=== PATIENT | female | born 1990 | race Caucasian/White ===

== ENCOUNTER 2018-08-23 14:20 | Emergency (ER) | payer MEDICAID ==
[~2018-08-23] VITALS: Ht 175.3 cm; Wt 63.5 kg
[2018-08-23] MEDS ORDERED: LORAZEPAM 0.5 MG TABLET ONE (14:37)
[2018-08-23] MEDS ORDERED: LEVETIRACETAM (250 MG) 250 MG TABLET PO ONE ×2 (14:38→15:00)
--- NOTE | 2018-08-23 14:40 | NUR ---
BIB [facility] [address] AND [employer] OFFICERS,CLAIMED TO HAVE HAD A SEIZURE IN A HOLDING CELL. PT APPEARS DISHEVELED, UPSET. STATES SHE WAS AT [place] LAST NIGHT FOR SAME ISSUE. SHE IS AOX4, HAS STABLE VITALS, WITH RR EVEN AND UNLABORED ON RA. EVAL BY DR DACOSTA. AWAITING MD ORDERS.
[2018-08-23 14:56] LABS: BASOPHILS % (AUTO) 0.8 % (0.0-2.0); EOSINOPHILS % (AUTO) 0.4 % (0.0-6.0); HEMATOCRIT 36 % (33-45); LYMPHOCYTES % (AUTO) 15.8 % (20.0-44.0); MEAN CORPUSCULAR HGB CONC 33 g/dl (31.0-36.0); MEAN CORPUSCULAR VOLUME 83 fL (82-100); MONOCYTES # (AUTO) 0.5 /CMM (0.1-1.30); MONOCYTES % (AUTO) 8.7 % (2.0-12.0); NEUTROPHILS # (AUTO) 4.7 /CMM (1.8-8.9); NEUTROPHILS % (AUTO) 74.3 % (43.0-81.0); PLATELET COUNT (AUTO) 284 /CMM (150-450); RED BLOOD CELL COUNT(AUTO) 4.35 MIL/uL (4.0-5.2); WHITE BLOOD COUNT (AUTO) 6.3 K/uL (4.3-11.0)
[2018-08-23 14:57] LABS: APPEARANCE,URINE Clear (CLEAR); BILIRUBIN,URINE SMALL (NEGATIVE); BLOOD, URINE Negative Ery/uL (NEGATIVE); COLOR,URINE Yellow (YELLOW); KETONES,URINE Negative (NEGATIVE); LEUKOCYTE ESTERASE ,URINE Trace (NEGATIVE); NITRITE, URINE Negative (NEGATIVE); PROTEIN,URINE 30 mg/dl (NEGATIVE); UGLUCOSE Negative (NEGATIVE); UROBILINOGEN,URINE 0.2 EU/dL (0.2)
--- NOTE | 2018-08-23 14:57 | NUR ---
URINE AND BLOOD COLLECTED AND SENT TO STAT LAB
[2018-08-23] MEDS ORDERED: LORAZEPAM 1 MG TABLET PO ONE (15:00)
[2018-08-23 15:03] LABS: CALCIUM, SERUM 9.1 mg/dL (8.5-10.1); CARBON DIOXIDE 31 mmol/L (21-32); CHLORIDE 106 mmol/L (98-107); GLUCOSE 127 mg/dL (74-106); POTASSIUM 3.6 mmol/L (3.5-5.1); RBC,URINE 0-2 /HPF (0-2); SODIUM SERUM 142 mmol/L (136-145); UREA NITROGEN, BLOOD 17 mg/dL (7-18)
[2018-08-23 15:04] LABS: BACTERIA,URINE Many /HPF (None Seen); SQUAMOUS EPITHELIAL CELL,UR Few /HPF (None Seen)
[2018-08-23 15:16] LABS: ALANINE AMINOTRANSFERASE 103 U/L (12-78); ALBUMIN 3.4 g/dL (3.4-5.0); ALCOHOL, BLOOD < 3 mg/dL (0-0); ALKALINE PHOSPHATASE 91 U/L (46-116); ASPARTATE AMINOTRANSFERASE 73 U/L (15-37); BILIRUBIN,DIRECT 0.2 mg/dL (0.0-0.2); BILIRUBIN,TOTAL 0.7 mg/dL (0.2-1.0); SALICYLATE 0.5 mg/dL (2.8-20.0); TOTAL PROTEIN, SERUM 7.9 g/dL (6.4-8.2)
[2018-08-23 15:17] LABS: ACETAMINOPHEN 0 ug/ml (10-30)
--- NOTE | 2018-08-23 15:35 | NUR ---
PER MD, POWER MACHINE OPERATOR READY TO BE CONTACTED
--- NOTE | 2018-08-23 15:58 | NUR ---
FLESHING MACHINE OPERATOR PINKY AT BEDSIDE FOR EVAL.
--- NOTE | 2018-08-23 16:48 | NUR ---
Faustino quintero in [facility] - 08/23/18 at 1725 by REGINA SITTER AT BEDSIDE ASSISTING PT TO WALK
--- NOTE | 2018-08-23 16:48 | NUR ---
SITTER AT BEDSIDE, PT NO LONGER IN [place] BY [employer]
--- NOTE | 2018-08-23 17:30 | NUR ---
PER [employer] CUTTER CAMMY, PT WILL BE ADMITTED VOLUNTARILY TO [facility]. INFORMATION WAS FAXED TO [facility]. AWAITING CALL BACK FOR ACCEPTANCE Addendum: 08/23/18 at 2222 by REGINA "INFO WILL BE FAXED PENDING REVIEW" PER CAMMY'S NOTES
--- NOTE | 2018-08-23 17:49 | NUR ---
PT ASLEEP IN BED, AROUSES EASILY. NO COMPLAINTS AT THIS TIME. WILL CONT TO OBSERVE
--- NOTE | 2018-08-23 20:14 | NUR ---
PT STILL SLEEPING. SITBYERS AT BEDSIDE. VSS. WILL CONT TO MONITOR.
--- NOTE | 2018-08-23 22:52 | NUR ---
PROVIDED PT WITH SANDWICH AND JUICE
--- NOTE | 2018-08-24 01:13 | NUR ---
PT RESTING COMFORTABLY IN BED. VITAL SIGNS STABLE. NO ACUTE DISTRESS NOTED AT THIS TIME. SITTER AT BEDSIDE, WILL CONTINUE TO MONITOR
--- NOTE | 2018-08-24 01:50 | NUR ---
[facility] WILL ACCEPT THE PATIENT. ACCEPTING IS DR. JESSA MCDANIEL. ZACH TO P-6. PHONE NUMBER FOR REPORT IS .
--- NOTE | 2018-08-24 01:58 | NUR ---
CALLED [facility] FOR TRANSPORT. ETA 45 MINUTES. TRIP NUMBER [id number].
--- NOTE | 2018-08-24 03:10 | NUR ---
ATTEMPTED TO GIVE REPORT TO [facility]. PER MARGARITA FUNG, NO FEMALE BEDS AVAILABLE AT THIS TIME. WILL FOLLOW UP.
--- NOTE | 2018-08-24 03:15 | NUR ---
CALL FROM [facility]TA[facility]. NO LONGER ACCEPTING PATIENT DUE TO CAPACITY.
--- NOTE | 2018-08-24 03:38 | NUR ---
Note ingrid in ED - 08/24/18 at 0338 by GRIFFIN ATTEMPTED TO GIVE REPORT TO [facility]. PER MARGARITA FUNG, NO FEMALE BEDS AVAILABLE AT THIS TIME. WILL FOLLOW UP.
--- NOTE | 2018-08-24 09:20 | NUR ---
CALLED [facility], REFAXED ALL INFORMATION AND CLINICAL
[2018-08-24] MEDS ORDERED: CLON2TAB PO (09:58)
[2018-08-24] MEDS ORDERED: BUPR2TAB3 SL (09:58)
--- NOTE | 2018-08-24 11:04 | NUR ---
Pt seen and evaluated by Dr. Almodovar. She denies suicidal ideation or homicidal ideation. Patient discharged to home in stable condition. Written and verbal after care instructions given. Patient verbalizes understanding of instruction.
[2018-08-24 11:08] VITALS: BP 124/77
== END 2018-08-24 11:08 | disposition home or self-care (01) ==
LOC: ER 14:24
DX: N39.0 Urinary tract infection, site not specified (principal); F15.10 Other stimulant abuse, uncomplicated; F17.200 Nicotine dependence, unspecified, uncomplicated; Z98.890 Other specified postprocedural states; Z88.8 Allergy status to other drugs, medicaments and biological substances
CPT/HCPCS: 36415; 80048-TC; 80076-TC; 80305; 81000-TC; 84702-TC; 85025-TC; 87086-TC; G0480